=== PATIENT | female | born 1950 | race Caucasian/White ===

== ENCOUNTER → 2017-06-14 | Outpatient (CLI) | payer MEDICARE, OTHER ==
[~2017-06-14] MED LIST: ANTI-GAS180 MG PO; ASPIRIN EC81 M1 PO; ASPIRIN81 MG PO; DELTASONE20 MG PO; KEPPRA500 M2 PO; LEVAQUIN PO; LINZESS290 MCG PO; LOPRESSOR PO; MAG-OX 400400 M1 PO; METOPROLOL SUCC50 MG; METRONIDAZOLE PO; NICOTINE TRANSDE7 MG EXT; NICOTINE1 EACH TD; NO MEDICATIONS; NORCO 7.5-3251 EACH PO; NORVASC PO; PROTONIX PO; TOPROL XL PO; ZOFRAN ODT4 MG PO
== END | disposition home or self-care (01) ==
LOC: CRC 09:20
DX: J44.9 Chronic obstructive pulmonary disease, unspecified (principal); F17.210 Nicotine dependence, cigarettes, uncomplicated
CPT/HCPCS: 94060; 94726; 94729